=== PATIENT | female | born 1980 | race African-American/Black ===

== ENCOUNTER 2018-01-23 15:08 | Emergency (ER) | payer OTHER ==
[~2018-01-23] VITALS: Ht 175.3 cm; Wt 61.2 kg
[~2018-01-23 15:08] MED LIST: HYDROCODON-ACE1 EAC7 PO; ZOFRAN ODT4 MG PO
[2018-01-23 15:51] LABS: ABSOLUTE BASOPHILS 0.1 thou/uL (0.0-0.2); ABSOLUTE EOSINOPHILS 0.1 thou/uL (0.0-0.7); ABSOLUTE LYMPHOCYTES 3.2 thou/uL (0.8-5.3); ABSOLUTE MONOCYTES 0.4 thou/uL (0.0-1.2); ABSOLUTE NEUTROPHILS 2.9 thou/uL (1.6-8.1); BASOPHILS 1.4 %; EOSINOPHILS 0.8 %; HEMATOCRIT 37.5 % (37.0-47.0); HEMOGLOBIN 12.8 gm/dL (12.0-15.0); MCH 28.3 pg (26.0-34.0); MCHC 34.2 g/dL (28.0-37.0); MCV 82.6 fL (80.0-100.0); MONOCYTES 6.5 %; MPV 8.5 fl. (7.2-11.1); NUCLEATED RBCS 0 /100WBC; PLATELET COUNT* 258 thou/uL (150-400); POLYS 43.3 %; RBC 4.53 mil/uL (4.20-5.00); RDW-CV 12.9 % (10.5-14.5); WBC 6.6 thou/uL (4.0-11.0)
[2018-01-23 16:01] LABS: ANION GAP 14 mmol/L (7-16); BUN 10 mg/dL (7-18); CALCIUM 9.2 mg/dL (8.5-10.1); CHLORIDE 103 mmol/L (98-107); CO2 22 mmol/L (21-32); CREATININE 0.8 mg/dL (0.6-1.3); GLUCOSE 96 mg/dL (70-99); SODIUM 139 mmol/L (136-145)
[2018-01-23 16:08] LABS: POTASSIUM 2.9 mmol/L (3.5-5.1)
[2018-01-23 16:12] LABS: ALBUMIN 4.4 g/dL (3.4-5.0); ALKALINE PHOSPHATASE 48 U/L (46-116); LIPASE 108 U/L (73-393); NT-PRO BRAIN NAT PEPTIDE 36 pg/mL (<300); SGOT 15 U/L (15-37); SGPT 21 U/L (30-65); TOTAL BILIRUBIN 0.2 mg/dL (<0.1-1.0); TROPONIN-I LEVEL <0.06 ng/mL (<0.06)
[2018-01-23] MEDS ORDERED: IBUPROFEN 800800 MG PO (17:44)
[2018-01-23 18:03] VITALS: BP 140/90
--- NOTE | 2018-01-24 14:49 | EKG ---
[place] [address] ELECTROCARDIOGRAM REPORT Name: GARCIACHRISMARA EDMOND Room: [facility]#: [id number] Admission: 01/23/18 Attend Phys: Discharge: 01/23/18 Date of : 82 Report #: [id number] THIS REPORT FOR: //name// [facility] ED Test Date: 2018-01-23 Test Time: 15:13:43 Pat Name: CHRIS GARCIA Department: Room: Gender: F [employer]: : 1980 Requested By: Chuck Higuera Order Number: [id number] MD: Gume Argueta Measurements Intervals [place] Rate: 98 P: 73 WI: 134 QRS: 54 QRSD: 75 T: 49 QT: 332 QTc: 424 Interpretive Statements Sinus rhythm No previous ECG available for comparison Electronically Signed On 01-24-2018 14:49:38 CDT by Gmue Argueta [email or web address] <ELECTRONICALLY SIGNED> By: Gume Argueta MD, [facility] 01/24/18 1449 1513 1513 Gume Argueta MD, FACC /EPI
== END 2018-01-23 18:04 | disposition home or self-care (01) ==
LOC: M.ERS 15:08
PROVIDERS: Emergency Medicine
DX: R07.89 Other chest pain (principal); R06.4 Hyperventilation; Z88.8 Allergy status to other drugs, medicaments and biological substances

== ENCOUNTER → 2018-10-18 | Outpatient (CLI) | payer OTHER ==
[~2018-10-18] MED LIST changes: +IBUPROFEN 800800 MG PO
== END ==
LOC: M.ULTRA 10:53
DX: M79.89 Other specified soft tissue disorders (principal); R91.8 Other nonspecific abnormal finding of lung field; Z88.8 Allergy status to other drugs, medicaments and biological substances